=== PATIENT | female | born 2000 | race Caucasian/White ===

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

== ENCOUNTER 2021-10-29 13:49 | Emergency (ER) | payer OTHER ==
[~2021-10-29] VITALS: Ht 149.9 cm; Wt 79.8 kg
[2021-10-29 13:52] VITALS: BP 122/95
--- NOTE | 2021-10-29 14:52 | NUR ---
Pt ambulated to Chair A.
--- NOTE | 2021-10-29 15:22 | NUR ---
Patient being evaluated by CAROL BERMUDEZ at [facility].
--- NOTE | 2021-10-29 15:35 | NUR ---
PT MOVED FROM CHAIR A TO BED 10
[2021-10-29] MEDS ORDERED: NACL 0.9% 1,000 ML IV SCH (15:40)
[2021-10-29] MEDS ORDERED: LORazepam 2 MG/ML VIAL IVP SCH (15:40)
--- NOTE | 2021-10-29 15:46 | NUR ---
TIFFANIA FROM WORK C/O ANXIETY, WEAKNESS X 2 DAYS. PT STAES HAS UPPER LEFT SIDE CHEST PAIN THAT GETS UP TPA 03/08. SHE SAYS IT SUBSIDES AFTER A LITTLE BIT. NOT PAIN ANYWHERE ELSE STATED. PT STATES HE HAS ANXIETY BUT THIS DOES NOT FEEL LIKE HER NORMAL SYMPTOMS. PT STATES PAIN RIGHT NOW IS A 5/10. PT RESTING IN BED. PMH:ANXIETY
--- NOTE | 2021-10-29 16:03 | NUR ---
XRAY AT BEDSIDE
[2021-10-29 16:11] LABS: BASOPHILS % (AUTO) 0.4 % (0.0-2.0); EOSINOPHILS % (AUTO) 0.3 % (0.0-4.0); HEMATOCRIT 40.6 % (36-48); HEMOGLOBIN 13.7 g/dL (12.0-16.0); LYMPHOCYTES # (AUTO) 1.3 K/uL (2.5-16.5); LYMPHOCYTES % (AUTO) 12.1 % (20.5-51.1); MEAN CORPUSCULAR HEMOGLOBIN 29 pg (27-31); MEAN CORPUSCULAR HGB CONC 34 g/dL (33-37); MEAN CORPUSCULAR VOLUME 85.5 fL (80-94); MONOCYTES # (AUTO) 0.4 K/uL (0.8-1.0); MONOCYTES % (AUTO) 3.9 % (1.7-9.3); NEUTROPHILS # (AUTO) 8.8 K/uL (1.8-7.7); NEUTROPHILS % (AUTO) 83.3 % (42.2-75.2); PLATELET COUNT (AUTO) 265 K/uL (140-450); RED BLOOD CELL COUNT(AUTO) 4.75 MIL/uL (4.20-5.40); RED CELL DISTRIBUTION WIDTH 12.9 % (11.6-13.7); WHITE BLOOD COUNT (AUTO) 10.5 K/uL (4.8-10.8)
[2021-10-29 16:23] LABS: BARBITURATE, URINE NEGATIVE ng/ml (NEG <=200); BENZODIAZEPINE, URINE NEGATIVE ng/mL (NEG <=200); CANNABINOID, URINE NEGATIVE ng/mL (NEG <=50); COCAINE, URINE NEGATIVE ng/mL (NEG <=300); OPIATE, URINE NEGATIVE ng/mL (NEG <=2000); PHENCYCLIDINE SCREEN,URINE NEGATIVE ng/mL (NEG <=25)
[2021-10-29 16:28] LABS: ANION GAP 12.7 (8-16); CARBON DIOXIDE 28.2 mmol/L (21-32); CREATININE 0.9 mg/dL (0.6-1.3); POTASSIUM 3.9 mmol/L (3.5-5.1); TOTAL BILIRUBIN 0.4 mg/dL (0.0-1.0)
--- NOTE | 2021-10-29 16:37 | NUR ---
pt provided with blanket bedside
[2021-10-29] MEDS ORDERED: HYDR25CA1 PO ×2 (17:06→18:47)
[2021-10-29 17:16] VITALS: BP 118/75
--- NOTE | 2021-10-29 17:16 | NUR ---
Patient discharged with v/s stable. Written and verbal after care instructions given and explained. Patient alert, oriented and verbalized understanding of instructions. Ambulatory with steady gait. All questions addressed prior to discharge. ID band removed. Patient advised to follow up with PMD. Rx of VISTARIL given. Patient educated on indication of medication including possible reaction and side effects. Opportunity to ask questions provided and answered.
== END 2021-10-29 17:16 | disposition home or self-care (01) ==
LOC: MED 13:49
DX: F41.0 Panic disorder [episodic paroxysmal anxiety] (principal); F41.9 Anxiety disorder, unspecified; R00.0 Tachycardia, unspecified; F15.90 Other stimulant use, unspecified, uncomplicated
CPT/HCPCS: 36415; 71045; 80053; 80305; 81002; 81025; 85025; 85379; 93005; 96361; 96374; 99285; J2060; J7030; Q0092

== ENCOUNTER 2024-03-07 03:08 | Emergency (ER) | payer OTHER ==
[~2024-03-07] VITALS: Ht 149.9 cm; Wt 84.4 kg
[~2024-03-07 03:08] MED LIST: HYDR25CA1 PO
[2024-03-07 03:12] VITALS: BP 130/79; PULSE 132; RESP 20; TEMP 100.8; O2SAT 96
[2024-03-07] MEDS ORDERED: IBUP-1842 PO (03:30)
[2024-03-07 03:32] VITALS: BP 130/79; PULSE 132; RESP 20; TEMP 100.8; O2SAT 96
[2024-03-07] MEDS: KETOROLAC 30 MG/ML VIAL IM ONE (03:39)
[2024-03-07] MEDS: ACETAMINOPHEN EXTRA STRENGTH 500 MG TAB PO ONE (03:39)
[2024-03-07] MEDS: NACL 0.9% 2,000 ML IV ONE (03:59)
[2024-03-07 04:13] LABS: FLU A ANTIGEN negative (NEGATIVE); FLU B ANTIGEN NEGATIVE (NEGATIVE)
== END 2024-03-07 05:08 | disposition home or self-care (01) ==
LOC: MED 03:08
DX: J06.9 Acute upper respiratory infection, unspecified (principal); Z20.822 Contact with and (suspected) exposure to COVID-19; Z79.899 Other long term (current) drug therapy
CPT/HCPCS: 87426; 87804; 96360; 96361; 96372; 99283; J1885; J7030